=== PATIENT | female | born 1955 | race American Indian/Alaskan Native ===

== ENCOUNTER 2018-07-02 09:34 | Outpatient (CLI) | payer MEDICAID ==
--- NOTE | 2018-07-02 10:31 | XRay Report ---
BILATERAL KNEES, 3 VIEWS History: Osteoarthritis both knees. Findings: Bone mineralization is normal. Minimal medial compartment joint space narrowing and minimal retropatellar spurring are identified in both knees. No evidence for fracture, bone lesion or large osteochondral defect. The soft tissues are unremarkable. Impression: Minimal osteoarthritis as described.
== END 2018-07-02 09:35 | disposition home or self-care (01) ==
LOC: XRAY 09:34
DX: M17.0 Bilateral primary osteoarthritis of knee (principal); E78.00 Pure hypercholesterolemia, unspecified; I10 Essential (primary) hypertension; E11.9 Type 2 diabetes mellitus without complications; K21.9 Gastro-esophageal reflux disease without esophagitis; M10.9 Gout, unspecified; Z87.891 Personal history of nicotine dependence; Z90.710 Acquired absence of both cervix and uterus; Z90.722 Acquired absence of ovaries, bilateral

== ENCOUNTER 2019-02-26 09:36 | Outpatient (CLI) | payer MEDICAID ==
[2019-02-26 10:31] LABS: Hematocrit 35.3 % (30.3-42.9); Hemoglobin 11.7 gm/dl (10.1-14.3); Mean Corpuscular HGB Conc 33 % (30-34); Mean Corpuscular Volume 86 fl (79-97); Platelet Count 253 K/mm3 (140-440); Red Blood Count 4.09 M/mm3 (3.65-5.03); Red Cell Distribution Width 13.9 % (13.2-15.2)
[2019-02-26 10:32] LABS: Albumin 4.2 g/dL (3.9-5); Calcium 10.2 mg/dL (8.4-10.2)
[2019-02-26 11:21] LABS: Creatinine,Urine 105.7 mg/dL (0.1-20.0); Protein/Creatinine Ratio,Urine 0.22
== END 2019-02-26 09:37 | disposition home or self-care (01) ==
LOC: LAB 09:36
PROVIDERS: ATTEND Internal Medicine Nephrology
DX: E78.2 Mixed hyperlipidemia (principal); I12.9 Hypertensive chronic kidney disease with stage 1 through stage 4 chronic kidney disease, or unspecified chronic kidney disease; N18.3 Chronic kidney disease, stage 3 (moderate); N20.0 Calculus of kidney; E55.9 Vitamin D deficiency, unspecified; E08.22 Diabetes mellitus due to underlying condition with diabetic chronic kidney disease; E66.3 Overweight; E78.00 Pure hypercholesterolemia, unspecified; K21.9 Gastro-esophageal reflux disease without esophagitis; Z90.710 Acquired absence of both cervix and uterus
CPT/HCPCS: 36415; 80048; 82040; 82570; 84100; 84156; 85027

== ENCOUNTER 2019-05-14 08:03 | Outpatient (CLI) | payer MEDICAID ==
--- NOTE | 2019-05-14 11:26 | Mammography Report ---
LEFT DIGITAL SCREENING MAMMOGRAM WITH CAD INDICATION: Routine screening mammography. Breast cancer survivor status post right mastectomy. TECHNIQUE: Digital left 2D mammography was obtained in the craniocaudal and mediolateral oblique pro jections. This examination was interpreted with the benefit of Computer-Aided Detection analysis. COMPARISON: 08/25/2014 FINDINGS: Breast Density: The breast is mostly fatty. No mass, architectural distortion or suspicious calcifications. A lower outer biopsy clip. IMPRESSION:No mammographic evidence of malignancy. BI-RADS Category 1: Negative. No mammographic evidence of malignancy. Recommend routine screening m ammography in one year. A "normal" or negative report should not discourage follow up or biopsy of a clinically significant f inding. A written summary of these findings will be mailed to the patient. The patient will be entered into a mammography reporting system which will generate a reminder letter for the patient's next appointmen t at the appropriate interval. The [employer] recommends yearly mammograms starting at age 40 and continuing as l kayla as a woman is in good health. Breast MRI is recommended for women with an approximate 20-25% or greater lifetime risk of breast cancer, including women with a strong family history of breast or ova derek cancer or who have been treated for Hodgkin's disease. Signer Name: Natalio Soliz MD Signed: 05/14/2019 11:21 AM Workstation Name: [id number]
== END 2019-05-14 08:04 | disposition home or self-care (01) ==
LOC: MAMMO 08:03
PROVIDERS: ATTEND Hospitalist
DX: Z12.31 Encounter for screening mammogram for malignant neoplasm of breast (principal); E78.00 Pure hypercholesterolemia, unspecified; K21.9 Gastro-esophageal reflux disease without esophagitis; E11.9 Type 2 diabetes mellitus without complications; Z90.710 Acquired absence of both cervix and uterus